=== PATIENT | female | born 1990 | race Caucasian/White ===

== ENCOUNTER 2016-12-15 21:23 | Inpatient (IN) | payer OTHER ==
[~2016-12-15] VITALS: Ht 162.6 cm; Wt 49.9 kg
[2016-12-15] MEDS ORDERED: MORPHINE SULFATE INJ 4 MG/ML DISP.SYRIN ONE (21:30)
[2016-12-15] MEDS ORDERED: IV SET PRIMARY 1 EA INFUS.SET MC ONE (21:30)
[2016-12-15] MEDS ORDERED: ONDANSETRON HCL/PF 4 MG/2 ML VIAL ONE (21:30)
[2016-12-15] MEDS ORDERED: IV NS 0.9% 1,000 ML ONE ×2 (21:30→22:45)
--- NOTE | 2016-12-15 21:42 | NUR ---
medicated pt as ordered
[2016-12-15 21:55] LABS: APPEARANCE,URINE SL CLOUDY (CLEAR); BILIRUBIN,URINE NEGATIVE (NEGATIVE); BLOOD, URINE TRACE-INTA Ery/uL (NEGATIVE); COLOR,URINE YELLOW (YELLOW); KETONES,URINE NEGATIVE (NEGATIVE); LEUKOCYTE ESTERASE ,URINE NEGATIVE (NEGATIVE); NITRITE, URINE POSITIVE (NEGATIVE); PROTEIN,URINE NEGATIVE (NEGATIVE); UGLUCOSE NEGATIVE (NEGATIVE); UROBILINOGEN,URINE 0.2 EU/dL (0.2)
[2016-12-15] MEDS ORDERED: ONDANSETRON HCL/PF 4 MG/2 ML VIAL IVP ONE (22:00)
[2016-12-15] MEDS ORDERED: MORPHINE SULFATE INJ 2 MG/ML DISP.SYRIN IV ONE (22:00)
[2016-12-15] MEDS ORDERED: IV NS 0.9% 1,000 ML BAG IV ONE ×2 (22:00→23:00)
[2016-12-15 22:02] LABS: BASOPHILS % (AUTO) 0.4 % (0.0-2.0); CREATININE 0.8 mg/dL (0.6-1.3); EOSINOPHILS # (AUTO) 0.2 /CMM (0.0-0.7); EOSINOPHILS % (AUTO) 1.3 % (0.0-6.0); HEMATOCRIT 40 % (33-45); HEMOGLOBIN 13.9 g/dL (11.5-14.8); LYMPHOCYTES # (AUTO) 3.1 /CMM (0.8-4.8); LYMPHOCYTES % (AUTO) 27.2 % (20.0-44.0); MEAN CORPUSCULAR HEMOGLOBIN 30 PG (26.0-33.0); MEAN CORPUSCULAR HGB CONC 35 g/dl (31.0-36.0); MEAN CORPUSCULAR VOLUME 87 fL (82-100); MONOCYTES # (AUTO) 1.4 /CMM (0.1-1.30); MONOCYTES % (AUTO) 12.1 % (2.0-12.0); NEUTROPHILS # (AUTO) 6.8 /CMM (1.8-8.9); PLATELET COUNT (AUTO) 190 /CMM (150-450); POTASSIUM 3.7 mmol/L (3.5-5.1); RDW COEFFICIENT OF VARIATION 12.1 (11.5-15.0); RED BLOOD CELL COUNT(AUTO) 4.62 MIL/uL (4.0-5.2); WHITE BLOOD COUNT (AUTO) 11.6 K/uL (4.3-11.0)
--- NOTE | 2016-12-15 22:02 | NUR ---
[facility] WAIVER SIGNED.
[2016-12-15 22:04] LABS: PREGNANCY TEST URINE QUAL NEGATIVE (NEGATIVE)
--- NOTE | 2016-12-15 22:06 | NUR ---
PT LEFT FOR CT VIA WC.
[2016-12-15] MEDS ORDERED: HYDROMORPHONE 1 MG/1 ML DISP.SYRIN ONE (22:13)
--- NOTE | 2016-12-15 22:18 | NUR ---
PT RETURNED FROM CT AND WAS C/O LEFT FLANK PAIN. PT IS MOANING. PT IS TACHY ON THE MONITOR WITH HR 114. MAYITO MONZON NOTIFIED AND NEW ORDERS GIVEN.
[2016-12-15] MEDS ORDERED: HYDROMORPHONE 1 MG/1 ML DISP.SYRIN IV ONE (22:30)
[2016-12-15 22:43] LABS: ADD URINE CULTURE YES; BACTERIA,URINE 4+ /HPF (None Seen); SQUAMOUS EPITHELIAL CELL,UR Many /HPF (None Seen)
[2016-12-15] MEDS ORDERED: KETOROLAC TROMETHAMINE INJ 30 MG/ML VIAL ONE (22:45)
--- NOTE | 2016-12-15 22:57 | NUR ---
CALLED NURSING SUP. FOR MS BED
[2016-12-15] MEDS ORDERED: KETOROLAC TROMETHAMINE INJ 30 MG/ML VIAL IV ONE (23:00)
--- NOTE | 2016-12-15 23:00 | NUR ---
REPORT GIVEN TO M/S RN.
--- NOTE | 2016-12-15 23:03 | NUR ---
[facility] PAGED, DR. SERGIO KISER SPEECH PATHOLOGY TEACHER
--- NOTE | 2016-12-15 23:05 | NUR ---
PELVIC EXAM DONE AT THE BEDSIDE BY [facility]
--- NOTE | 2016-12-15 23:15 | NUR ---
PELVIC EXAM FINISHED. SAMPLES SENT TO LAB.
[2016-12-15] MEDS ORDERED: IV NS 0.9% 1,000 ML IV PRN (23:20)
[2016-12-15] MEDS ORDERED: AZITHROMYCIN 250 MG TABLET ONE (23:25)
[2016-12-15] MEDS ORDERED: IV SET PRIMARY PUMP SET 1 EA INFUS.SET MC ONE (23:25)
[2016-12-15] MEDS ORDERED: METRONIDAZOLE 500MG/ NS 100ML 100 ML IV ONE ×2 (23:25→23:30)
[2016-12-15] MEDS ORDERED: ONDANSETRON HCL/PF 4 MG/2 ML VIAL IVP PRN (23:30)
[2016-12-15] MEDS ORDERED: ZOLPIDEM TARTRATE 5 MG TABLET PO PRN (23:30)
[2016-12-15] MEDS ORDERED: HYDROCODONE/APAP 5/325MG 1 EACH TABLET PO PRN (23:30)
[2016-12-15] MEDS ORDERED: MAG HYDROX/AL HYDROX/SIMETH 30 ML UDC PO PRN (23:30)
[2016-12-15] MEDS ORDERED: Z GUARD REMEDY 2 OZ OINT TP PRN (23:30)
[2016-12-15] MEDS ORDERED: ACETAMINOPHEN 325 MG TABLET PO PRN (23:30)
[2016-12-15] MEDS ORDERED: MAGNESIUM HYDROXIDE 30 ML UDC PO PRN (23:30)
[2016-12-15] MEDS ORDERED: MORPHINE SULFATE INJ 2 MG/ML DISP.SYRIN IV PRN (23:30)
[2016-12-15] MEDS ORDERED: AZITHROMYCIN 250 MG TABLET PO ONE (23:30)
--- NOTE | 2016-12-15 23:30 | NUR ---
WOODWORKER HELPER IS AT THE BEDSIDE FOR BLOOD CULTURE DRAW.
--- NOTE | 2016-12-15 23:45 | NUR ---
PT LEFT FOR MS FLOOR VIA TY
[2016-12-16] MEDS ORDERED: CEFTRIAXONE 1 G in IV D5W 50 ML IV SCH ×2
[2016-12-16 00:30] VITALS: BP 121/80
[2016-12-16] MEDS ORDERED: KETOROLAC TROMETHAMINE INJ 30 MG/ML VIAL IV PRN (00:30)
[2016-12-16] MEDS ORDERED: SECONDARY IV SET 1 EA INFUS.SET MC ONE (00:32)
[2016-12-16] MEDS ORDERED: IV NS 0.9% 1,000 ML ONE (00:32)
[2016-12-16] MEDS ORDERED: CEFTRIAXONE 1 G VIAL ONE (00:32)
[2016-12-16] MEDS ORDERED: IV D5W 50 ML IV ONE (00:36)
--- NOTE | 2016-12-16 01:15 | NUR ---
MS RN NOTE: RECEIVED PATIENT FOR ER, NO ACUTE DISTRESS NOTED. BREATHING EVEN AND UNLABORED, NO SOB NOTED. IV TO RAC IN PLACE. ORIENTED PATIENT TO ROOM AND USE OF CALL LIGHT. BED LOCKED AND IN LOWEST POSITION, CALL LIGHT IN REACH. WILL CONTINUE TO MONITOR.
[2016-12-16 02:42] VITALS: BP 116/75
[2016-12-16] MEDS ORDERED: KETOROLAC TROMETHAMINE INJ 30 MG/ML VIAL ONE (04:36)
[2016-12-16] MEDS ORDERED: METRONIDAZOLE 500 MG TABLET ONE (04:36)
[2016-12-16] MEDS: METRONIDAZOLE 500 MG TABLET PO SCH ×2 (04:41→13:00)
--- NOTE | 2016-12-16 04:45 | NUR ---
MS RN NOTE: PATIENT COMPLAINS OF LEFT FLANK PAIN 05/28, TORADOL 30MG IV GIVEN PER MD ORDER. WILL CONTINUE TO MONITOR.
--- NOTE | 2016-12-16 06:15 | NUR ---
MS RN NOTE: PATIENT RESTING IN BED, NO ACUTE DISTRESS NOTED. BREATHING EVEN AND UNLABORED, NO SOB NOTED. IV TO LAC IN PLACE, INFUSING NS AT 125ML/HR. BED LOCKED AND IN LOWEST POSITION, CALL LIGHT IN REACH. WILL ENDORSE TO DAY NURSE TO CONTINUE WITH PLAN OF CARE.
[2016-12-16 06:57] LABS: BASOPHILS % (AUTO) 0.4 % (0.0-2.0); EOSINOPHILS # (AUTO) 0.2 /CMM (0.0-0.7); EOSINOPHILS % (AUTO) 2.2 % (0.0-6.0); HEMATOCRIT 35 % (33-45); HEMOGLOBIN 12.1 g/dL (11.5-14.8); LYMPHOCYTES % (AUTO) 23.9 % (20.0-44.0); MEAN CORPUSCULAR HEMOGLOBIN 31 PG (26.0-33.0); MEAN CORPUSCULAR HGB CONC 34 g/dl (31.0-36.0); MEAN CORPUSCULAR VOLUME 89 fL (82-100); MONOCYTES % (AUTO) 12.4 % (2.0-12.0); NEUTROPHILS % (AUTO) 61.1 % (43.0-81.0); PLATELET COUNT (AUTO) 147 /CMM (150-450); RDW COEFFICIENT OF VARIATION 12.1 (11.5-15.0); RED BLOOD CELL COUNT(AUTO) 3.98 MIL/uL (4.0-5.2); WHITE BLOOD COUNT (AUTO) 8.2 K/uL (4.3-11.0)
[2016-12-16 07:15] LABS: ALBUMIN 3.1 g/dL (3.4-5.0); BILIRUBIN,TOTAL 0.7 mg/dL (0.2-1.0); CREATININE 0.7 mg/dL (0.6-1.3); MAGNESIUM 1.8 mg/dL (1.8-2.4); PHOSPHORUS 3.5 mg/dL (2.5-4.9); POTASSIUM 4.2 mmol/L (3.5-5.1); TOTAL PROTEIN, SERUM 6.1 g/dL (6.4-8.2)
--- NOTE | 2016-12-16 07:35 | NUR ---
MS/RN Patient received Patient received from restaurant shift leader. Pain controlled at this time, no needs. IV fluids infusing at 125ml/hr, no signs of infiltration seen around insertion site. Call light within reach, will continue to monitor.
[2016-12-16 08:00] VITALS: BP 108/70
[2016-12-16] MEDS ORDERED: NEXPLANON (08:25)
[2016-12-16] MEDS ORDERED: PANTOPRAZOLE 40 MG VIAL IV SCH (09:00)
--- NOTE | 2016-12-16 11:48 | NUR ---
MS/RN S/B Dr Mccauley Seen by Dr Mccauley - patient to be discharged to home later this afternoon, prescriptions to be written for pain medication and oral anti-biotics.
[2016-12-16] MEDS ORDERED: METR500T PO (12:12)
[2016-12-16] MEDS ORDERED: LEVO500T15 PO (12:12)
[2016-12-16] MEDS ORDERED: ACET-907 PO (12:12)
--- NOTE | 2016-12-16 12:27 | NUR ---
MS/RN Exit care Exit care prepared, chart copied.
--- NOTE | 2016-12-16 14:29 | NUR ---
MS/core baker Exit care signed by patient, copy made and placed in chart. Educated patient on when to return to the emergency room. Prescription given to patient, each medication explained to patient including any possible side effects, patient stated full understanding. Prescription to be filled at any pharmacy. Heplock and name bands removed. Awaiting family to provided transport.
--- NOTE | 2016-12-16 14:53 | NUR ---
MS/screed person Patient discharged to home in stable condition. Escorted to main door by SUPERVISOR HIDE HOUSE.
== END 2016-12-16 14:57 | disposition home or self-care (01) | DRG 531 ==
LOC: ER 21:25 → MEDSG2 23:08
PROVIDERS: ADMIT Family Medicine; ATTEND Family Medicine
DX: N73.9 Female pelvic inflammatory disease, unspecified (principal); N10 Acute pyelonephritis; F17.210 Nicotine dependence, cigarettes, uncomplicated; N76.0 Acute vaginitis
CPT/HCPCS: 36415; 80048-TC; 80053-TC; 81000-TC; 83735-TC; 84100-TC; 84703-TC; 85025-TC; 87040-TC; 87070-TC; 87081-TC; 87086-TC; 87110-TC; 87186-TC; 87210-TC; A4606; C9113; J0696; J1170; J1885; J2270; J2405; J3490; J7030; J7060; Z7610

== ENCOUNTER 2017-08-24 19:03 | Emergency (ER) | payer OTHER ==
[~2017-08-24] VITALS: Ht 162.6 cm; Wt 53.5 kg
[~2017-08-24 19:03] MED LIST: ACET-907 PO; LEVO500T15 PO; METR500T PO; NEXPLANON
[2017-08-24 19:48] LABS: BASOPHILS # (AUTO) 0.1 /CMM (0.0-0.2); BASOPHILS % (AUTO) 1.3 % (0.0-2.0); EOSINOPHILS # (AUTO) 0.1 /CMM (0.0-0.7); EOSINOPHILS % (AUTO) 0.6 % (0.0-6.0); HEMATOCRIT 47 % (33-45); HEMOGLOBIN 15.7 g/dL (11.5-14.8); LYMPHOCYTES # (AUTO) 2.7 /CMM (0.8-4.8); LYMPHOCYTES % (AUTO) 26.2 % (20.0-44.0); MEAN CORPUSCULAR HEMOGLOBIN 31 PG (26.0-33.0); MEAN CORPUSCULAR HGB CONC 34 g/dl (31.0-36.0); MEAN CORPUSCULAR VOLUME 91 fL (82-100); MONOCYTES # (AUTO) 0.5 /CMM (0.1-1.30); NEUTROPHILS % (AUTO) 66.9 % (43.0-81.0); PLATELET COUNT (AUTO) 202 /CMM (150-450); RDW COEFFICIENT OF VARIATION 11.5 (11.5-15.0); RED BLOOD CELL COUNT(AUTO) 5.14 MIL/uL (4.0-5.2); WHITE BLOOD COUNT (AUTO) 10.4 K/uL (4.3-11.0)
[2017-08-24 19:50] LABS: APPEARANCE,URINE Cloudy (CLEAR); BILIRUBIN,URINE Negative (NEGATIVE); BLOOD, URINE Trace-lysed Ery/uL (NEGATIVE); COLOR,URINE Yellow (YELLOW); KETONES,URINE Trace (NEGATIVE); LEUKOCYTE ESTERASE ,URINE Negative (NEGATIVE); NITRITE, URINE Negative (NEGATIVE); PH,URINE 5.5 (5.0-8.0); PROTEIN,URINE Negative (NEGATIVE); UGLUCOSE Negative (NEGATIVE); UROBILINOGEN,URINE 0.2 EU/dL (0.2)
--- NOTE | 2017-08-24 19:52 | NUR ---
US ARRIVED AND IS AT THE BEDSIDE.
[2017-08-24 19:59] LABS: CALCIUM, SERUM 9.6 mg/dL (8.5-10.1); CREATININE 0.8 mg/dL (0.6-1.3); POTASSIUM 3.7 mmol/L (3.5-5.1)
[2017-08-24] MEDS ORDERED: KETOROLAC TROMETHAMINE INJ 30 MG/ML VIAL IV ONE (20:00)
[2017-08-24] MEDS ORDERED: IV NS 0.9% 1,000 ML BAG IV ONE (20:00)
[2017-08-24] MEDS ORDERED: diphenhydrAMINE HCL 50 MG/ML VIAL IV ONE (20:00)
[2017-08-24] MEDS ORDERED: METOCLOPRAMIDE HCL 10 MG/2 ML VIAL IV ONE (20:00)
[2017-08-24 20:03] LABS: BACTERIA,URINE Few /HPF (None Seen); SQUAMOUS EPITHELIAL CELL,UR Moderate /HPF (None Seen); WBC,URINE 0-2 /HPF (0-3)
[2017-08-24] MEDS ORDERED: METOCLOPRAMIDE HCL 10 MG/2 ML VIAL ONE (20:06)
[2017-08-24] MEDS ORDERED: KETOROLAC TROMETHAMINE INJ 30 MG/ML VIAL ONE (20:06)
[2017-08-24] MEDS ORDERED: diphenhydrAMINE HCL 50 MG/ML VIAL ONE (20:06)
--- NOTE | 2017-08-24 20:09 | NUR ---
PT REC'D MEDICATION ORDERED.
[2017-08-24 20:11] LABS: ALBUMIN 4.7 g/dL (3.4-5.0); BILIRUBIN,DIRECT 0.2 mg/dL (0.0-0.2); BILIRUBIN,TOTAL 1.1 mg/dL (0.2-1.0); TOTAL PROTEIN, SERUM 8.2 g/dL (6.4-8.2)
--- NOTE | 2017-08-24 21:01 | NUR ---
Patient discharged to home in stable condition. Written and verbal after care instructions given. Patient verbalizes understanding of instruction.IV removed. Catheter intact and site benign. Pressure and 4x4 applied to site. No bleeding noted. PT IS CALLING UBER TO TAKE HER HOME. PT AMBULATED OUT WITH A STEADY GAIT. VSS.
[2017-08-24 21:02] VITALS: BP 104/68
== END 2017-08-24 21:02 | disposition home or self-care (01) ==
LOC: ER 19:09
DX: N83.291 Other ovarian cyst, right side (principal); R51 Headache; R10.32 Left lower quadrant pain
CPT/HCPCS: 36415; 76856; 80048; 80076; 81001; 84703; 85025; 96361; 96374; 96375; 99285; A4606; J1200; J1885; J2765; J7030; Z7610; 81000-TC

== ENCOUNTER 2018-03-22 15:58 | Emergency (ER) | payer OTHER ==
[~2018-03-22] VITALS: Ht 162.6 cm; Wt 52.2 kg
[~2018-03-22 15:58] MED LIST changes: -LEVO500T15 PO; +LEVO500T75 PO
[2018-03-22 16:15] VITALS: BP 108/60
[2018-03-22] MEDS ORDERED: FLUORESCEIN SODIUM OPHTH 1 EA STRIP ONE (16:26)
== END 2018-03-22 16:58 | disposition home or self-care (01) ==
LOC: ER 16:00
DX: H10.32 Unspecified acute conjunctivitis, left eye (principal); Z60.2 Problems related to living alone
CPT/HCPCS: 99283; A4606; Z7610

== ENCOUNTER 2018-09-23 04:36 | Emergency (ER) | payer OTHER ==
[~2018-09-23] VITALS: Ht 162.6 cm; Wt 52.2 kg
--- NOTE | 2018-09-23 04:55 | NUR ---
Pt ambulatory w/ steady gait, here for c/o lt sided cp, nonradiating x 4 days. pt AOx4, afebrile w/ resp even & unlabored, appears anxious, denies any SOB, no N/V, NSR on continuous pulse-ox w/ cardiac monitoring. pt report drinking whiskey w/ friends x1 hr ago today. Dr. Perez at bedside for eval.
--- NOTE | 2018-09-23 04:58 | NUR ---
KARTHIK started, labs drawn & sent to lab.
[2018-09-23] MEDS ORDERED: IV NS 0.9% 1,000 ML BAG IV ONE ×2 (05:00→06:00)
--- NOTE | 2018-09-23 05:14 | NUR ---
Portable CXR performed at bedside.
[2018-09-23 05:16] LABS: BASOPHILS % (AUTO) 0.6 % (0.0-2.0); EOSINOPHILS % (AUTO) 1.5 % (0.0-6.0); HEMATOCRIT 44 % (33-45); LYMPHOCYTES # (AUTO) 3.6 /CMM (0.8-4.8); LYMPHOCYTES % (AUTO) 45.7 % (20.0-44.0); MEAN CORPUSCULAR HGB CONC 35 g/dl (31.0-36.0); MEAN CORPUSCULAR VOLUME 93 fL (82-100); MONOCYTES # (AUTO) 0.7 /CMM (0.1-1.30); MONOCYTES % (AUTO) 8.9 % (2.0-12.0); NEUTROPHILS # (AUTO) 3.4 /CMM (1.8-8.9); NEUTROPHILS % (AUTO) 43.3 % (43.0-81.0); PLATELET COUNT (AUTO) 260 /CMM (150-450); RED BLOOD CELL COUNT(AUTO) 4.67 MIL/uL (4.0-5.2)
[2018-09-23 05:19] LABS: CALCIUM, SERUM 9.4 mg/dL (8.5-10.1); CARBON DIOXIDE 21 mmol/L (21-32); CHLORIDE 104 mmol/L (98-107); CREATININE 1.1 mg/dL (0.6-1.3); GLUCOSE 85 mg/dL (74-106); POTASSIUM 3.6 mmol/L (3.5-5.1); SODIUM SERUM 141 mmol/L (136-145); UREA NITROGEN, BLOOD 14 mg/dL (7-18)
[2018-09-23 05:25] LABS: ALANINE AMINOTRANSFERASE 31 U/L (12-78); ALKALINE PHOSPHATASE 97 U/L (46-116); ASPARTATE AMINOTRANSFERASE 16 U/L (15-37); BILIRUBIN,DIRECT 0.2 mg/dL (0.0-0.2); BILIRUBIN,TOTAL 0.6 mg/dL (0.2-1.0); TOTAL PROTEIN, SERUM 7.5 g/dL (6.4-8.2)
--- NOTE | 2018-09-23 05:43 | NUR ---
Dr. Perez at bedside for update on pt status.
[2018-09-23] MEDS ORDERED: MECLIZINE HCL 25 MG TABLET ONE (05:53)
--- NOTE | 2018-09-23 05:58 | NUR ---
Pt medicated as ordered for report having dizziness, no headaches w/ no blurred visions. On continuous pulse-ox w/ cardiac monitoring.
[2018-09-23] MEDS ORDERED: MECLIZINE HCL 25 MG TABLET PO ONE (06:00)
--- NOTE | 2018-09-23 06:04 | NUR ---
Pt ambulatory w/ steady gait to restroom w/ resp even & unlabored, nad noted.
--- NOTE | 2018-09-23 06:36 | NUR ---
pt resting in bed w/ resp even & unlabored, nad noted. IV flds continue to be infusing. Bed low to the ground w/ siderails up for safety, on continuous pulse-ox w/ cardiac monitoring.
--- NOTE | 2018-09-23 07:06 | NUR ---
IVHL removed. Catheter intact and site benign. Pressure and 4x4 applied to site. No bleeding noted. Patient discharged to home in stable condition. Written and verbal after care instructions given. Prescriptions provided. Patient instructed not to drive while on pain medications. Patient verbalizes understanding of instruction.
[2018-09-23 07:07] VITALS: BP 141/82
== END 2018-09-23 07:07 | disposition home or self-care (01) ==
LOC: ER 04:41
DX: R07.89 Other chest pain (principal); R42 Dizziness and giddiness; R53.1 Weakness; F17.210 Nicotine dependence, cigarettes, uncomplicated; Z60.2 Problems related to living alone
CPT/HCPCS: 36415; 71045; 80048; 80076; 83690; 84484; 84703; 85025; 85730; 93005; 96360; 96361; 99284; A4606; J7030 ×2; J8597; Z7610

== ENCOUNTER 2019-05-20 11:03 | Emergency (ER) | payer SELFPAY ==
[~2019-05-20] VITALS: Ht 162.6 cm; Wt 63.5 kg
[2019-05-20 11:14] VITALS: BP 125/78
[2019-05-20] MEDS ORDERED: ACETAMINOPHEN ES 500 MG TABLET ONE (11:30)
[2019-05-20] MEDS ORDERED: IBUPROFEN 400 MG TABLET ONE (11:31)
[2019-05-20] MEDS: ACETAMINOPHEN ES 500 MG TABLET PO ONE (11:33)
[2019-05-20] MEDS: IBUPROFEN 400 MG TABLET PO ONE (11:33)
[2019-05-20] MEDS ORDERED: AMOXICILLIN TRIHYDRATE 250 MG CAPSULE ONE (11:45)
[2019-05-20] MEDS: AMOXICILLIN TRIHYDRATE 250 MG CAPSULE PO ONE (11:49)
== END 2019-05-20 12:12 | disposition home or self-care (01) ==
LOC: ER 11:10
DX: J02.0 Streptococcal pharyngitis (principal); F17.200 Nicotine dependence, unspecified, uncomplicated; Z60.2 Problems related to living alone; Z79.899 Other long term (current) drug therapy

== ENCOUNTER 2019-07-23 08:11 | Emergency (ER) | payer SELFPAY ==
[~2019-07-23] VITALS: Ht 162.6 cm; Wt 60.3 kg
--- NOTE | 2019-07-23 08:24 | NUR ---
PAZ, FROM HOME, C/O HEADACHE STARTED AROUND 12MIDNIGHT AND WORST TODAY 10/10 PS, PT STATES "I FEEL LIKE I AM GONNA PASS OUT" PATIENT A/OX4, BREATHING EVEN AND UNLABORED, NO SOB NOTED, -N/V. CHANGED INTO GOWN, ATTACHED TO THE LIFE ENRICHMENT ASSISTANT. KEPT COMFORTABLE.
--- NOTE | 2019-07-23 08:27 | NUR ---
DR. GALVEZ AT BEDSIDE FOR EVAL.
[2019-07-23] MEDS ORDERED: diphenhydrAMINE HCL 50 MG/ML VIAL ONE (08:30)
[2019-07-23] MEDS ORDERED: IV NS 0.9% 1,000 ML BAG IV ONE (08:30)
[2019-07-23] MEDS ORDERED: KETOROLAC TROMETHAMINE INJ 30 MG/ML VIAL ONE (08:30)
[2019-07-23] MEDS ORDERED: KETOROLAC TROMETHAMINE INJ 30 MG/ML VIAL IV ONE (08:30)
[2019-07-23] MEDS ORDERED: diphenhydrAMINE HCL 50 MG/ML VIAL IV ONE (08:30)
[2019-07-23 08:45] LABS: CREATININE 0.8 mg/dL (0.6-1.3); POTASSIUM 3.8 mmol/L (3.5-5.1)
[2019-07-23 08:46] LABS: BASOPHILS # (AUTO) 0.1 /CMM (0.0-0.2); BASOPHILS % (AUTO) 0.8 % (0.0-2.0); EOSINOPHILS % (AUTO) 0.4 % (0.0-6.0); HEMATOCRIT 45 % (33-45); HEMOGLOBIN 15.4 g/dL (11.5-14.8); LYMPHOCYTES # (AUTO) 2.5 /CMM (0.8-4.8); LYMPHOCYTES % (AUTO) 26.9 % (20.0-44.0); MEAN CORPUSCULAR HGB CONC 34 g/dl (31.0-36.0); MEAN CORPUSCULAR VOLUME 92 fL (82-100); MONOCYTES # (AUTO) 0.9 /CMM (0.1-1.30); MONOCYTES % (AUTO) 9.4 % (2.0-12.0); NEUTROPHILS # (AUTO) 5.9 /CMM (1.8-8.9); NEUTROPHILS % (AUTO) 62.5 % (43.0-81.0); PLATELET COUNT (AUTO) 256 /CMM (150-450); WHITE BLOOD COUNT (AUTO) 9.5 K/uL (4.3-11.0)
--- NOTE | 2019-07-23 09:34 | NUR ---
Ambulatory with a steady gait. IV removed. Catheter intact and site benign. Pressure and 4x4 applied to site. No bleeding noted.
[2019-07-23 09:35] VITALS: BP 150/90
--- NOTE | 2019-07-23 09:55 | NUR ---
Patient discharged to home in stable condition. Written and verbal after care instructions given. Patient verbalizes understanding of instruction.
== END 2019-07-23 10:05 | disposition home or self-care (01) ==
LOC: ER 08:17
DX: R51 Headache (principal); F17.200 Nicotine dependence, unspecified, uncomplicated; Z60.2 Problems related to living alone; Z79.899 Other long term (current) drug therapy
CPT/HCPCS: 36415; 80048; 84702; 85025; 96374; 96375; 99283; J1200; J1885; J7030

== ENCOUNTER 2019-11-28 16:51 | Emergency (ER) | payer SELFPAY ==
[~2019-11-28] VITALS: Ht 162.6 cm; Wt 59.0 kg
--- NOTE | 2019-11-28 16:58 | NUR ---
BIB SELF C/O CHEST PAIN PRESSURE LIKE RADIATES TO L ARM STARTED AROUND 3PM, TO ER BED 10, HOOKED TO TRUCK DRIVER SALESPERSON, SINUS RHYTHM, CHANGED TO HOSP GOWN, WARM BLANKET PROVIDED, AWAITING MD SALAS. Addendum: 11/28/19 at 1717 by YEMI BIB SELF C/O CHEST PAIN PRESSURE LIKE RADIATES TO L ARM STARTED AROUND 3PM, TO ER BED 10, HOOKED TO TRUCK DRIVER SALESPERSON, SINUS TACHYCARDIA, CHANGED TO HOSP GOWN, WARM BLANKET PROVIDED, AWAITING MD SALAS.
[2019-11-28] MEDS ORDERED: LORAZEPAM 1 MG TABLET ONE (17:29)
[2019-11-28] MEDS ORDERED: ASPIRIN 81 MG TAB.CHEW ONE (17:29)
[2019-11-28] MEDS ORDERED: ASPIRIN 81 MG TAB.CHEW PO ONE (17:30)
[2019-11-28] MEDS ORDERED: LORAZEPAM 1 MG TABLET PO ONE (17:30)
--- NOTE | 2019-11-28 17:31 | NUR ---
BP CHECKED BILATERAL ARM. RIGHT: 144/90 [facility] LEFT: 146/91 [facility]
[2019-11-28 17:37] LABS: BASOPHILS # (AUTO) 0.1 /CMM (0.0-0.2); BASOPHILS % (AUTO) 0.9 % (0.0-2.0); EOSINOPHILS % (AUTO) 0.2 % (0.0-6.0); HEMATOCRIT 45 % (33-45); HEMOGLOBIN 15.6 g/dL (11.5-14.8); LYMPHOCYTES # (AUTO) 3.5 /CMM (0.8-4.8); LYMPHOCYTES % (AUTO) 34.7 % (20.0-44.0); MEAN CORPUSCULAR HGB CONC 34 g/dl (31.0-36.0); MEAN CORPUSCULAR VOLUME 92 fL (82-100); MONOCYTES # (AUTO) 0.9 /CMM (0.1-1.30); MONOCYTES % (AUTO) 9.2 % (2.0-12.0); NEUTROPHILS # (AUTO) 5.6 /CMM (1.8-8.9); PLATELET COUNT (AUTO) 258 /CMM (150-450); RED BLOOD CELL COUNT(AUTO) 4.93 MIL/uL (4.0-5.2); WHITE BLOOD COUNT (AUTO) 10.2 K/uL (4.3-11.0)
[2019-11-28 17:47] LABS: CARBON DIOXIDE 21 mmol/L (21-32); CHLORIDE 102 mmol/L (98-107); CREATININE 0.8 mg/dL (0.6-1.3); GLUCOSE 84 mg/dL (74-106); POTASSIUM 3.2 mmol/L (3.5-5.1); SODIUM SERUM 139 mmol/L (136-145); UREA NITROGEN, BLOOD 7 mg/dL (7-18)
[2019-11-28 17:54] LABS: ALANINE AMINOTRANSFERASE 25 U/L (12-78); ALBUMIN 4.8 g/dL (3.4-5.0); ALKALINE PHOSPHATASE 82 U/L (46-116); ASPARTATE AMINOTRANSFERASE 18 U/L (15-37); BILIRUBIN,DIRECT 0.2 mg/dL (0.0-0.2); TOTAL PROTEIN, SERUM 8.3 g/dL (6.4-8.2)
[2019-11-28] MEDS ORDERED: KETOROLAC TROMETHAMINE INJ 30 MG/ML VIAL IV ONE (19:00)
[2019-11-28] MEDS ORDERED: POTASSIUM CHLORIDE 20 MEQ TAB.PRT.SR PO ONE ×2 (19:00→19:08)
[2019-11-28] MEDS ORDERED: KETOROLAC TROMETHAMINE 15 MG/ML VIAL ONE (19:07)
--- NOTE | 2019-11-28 19:34 | NUR ---
REPORT GIVEN TO YA REEDER FOR GUILLE
[2019-11-28 20:02] VITALS: BP 128/77
--- NOTE | 2019-11-28 20:02 | NUR ---
Patient discharged to home in stable condition. Written and verbal after care instructions given. Patient verbalizes understanding of instruction.
--- NOTE | 2019-11-28 20:02 | NUR ---
IV removed. Catheter intact and site benign. Pressure and 4x4 applied to site. No bleeding noted.
== END 2019-11-28 20:02 | disposition home or self-care (01) ==
LOC: ER 16:51
DX: R07.89 Other chest pain (principal); F41.0 Panic disorder [episodic paroxysmal anxiety]; F17.200 Nicotine dependence, unspecified, uncomplicated; E87.6 Hypokalemia; Z60.2 Problems related to living alone
CPT/HCPCS: 36415; 71045; 80048; 80076; 84484; 84702; 85025; 93005 ×3; 96374; 99285; 99406; J1885

== ENCOUNTER 2023-10-08 05:20 | Emergency (ER) | payer MEDICAID, OTHER ==
[~2023-10-08] VITALS: Ht 162.6 cm; Wt 63.5 kg
[2023-10-08] MEDS ORDERED: ACETAMINOPHEN ES 500 MG TABLET ONE (06:18)
[2023-10-08] MEDS ORDERED: ACETAMINOPHEN ES 500 MG TABLET PO ONE (06:30)
[2023-10-08 07:18] LABS: PREGNANCY TEST URINE QUAL NEGATIVE (NEGATIVE)
[2023-10-08 08:50] VITALS: BP 120/67; TEMP 97.9; O2SAT 96
== END 2023-10-08 08:51 | disposition home or self-care (01) ==
LOC: ER 05:26
DX: S09.90XA Unspecified injury of head, initial encounter (principal); F17.200 Nicotine dependence, unspecified, uncomplicated; Z60.2 Problems related to living alone; V89.2XXA Person injured in unspecified motor-vehicle accident, traffic, initial encounter; Y93.89 Activity, other specified; Y92.410 Unspecified street and highway as the place of occurrence of the external cause; Y99.8 Other external cause status
CPT/HCPCS: 70450-TC; 70486-TC; 84703-TC